=== PATIENT | female | born 1940 | race Caucasian/White ===

== ENCOUNTER 2019-07-24 11:20 | Emergency (ER) | payer MEDICARE, OTHER ==
[2019-07-24 11:27] VITALS: BP 169/90; PULSE 60
--- NOTE | 2019-07-24 11:38 | EDM.PDOC ---
ED HPI GENERAL MEDICAL PROBLEM - General Chief Complaint: Genitourinary Problem Stated Complaint: WEAKNESS MAYBE UTI Time Seen by Provider: 07/24/19 11:30 Source of Information: Reports: Patient, EMS History Limitations: Reports: No Limitations - History of Present Illness INITIAL COMMENTS - FREE TEXT/NARRATIVE: Patient presents by ambulance from home describing generalized weakness, chills , concerned that she might have a UTI. When she went to bed last night, she was feeling somewhat weak and chilled. She was able to move around at home but was less steady than normal. She awoke approximately 0300 hrs. to use the bathroom and states that she made it back to bed but was unable to go to sleep because of concerns over how she felt. Eventually she let her dog out and then made it to her chair, feeling that she had no strength. Onset: Gradual Duration: Hour(s): (12) Location: Reports: Generalized Severity: Moderate Improves with: Reports: None Worsens with: Reports: Movement Associated Symptoms: Reports: Weakness - Related Data Allergies Allergy/AdvReac Type Severity Reaction Status Date / Time allopurinol Allergy Rash Verified 07/24/19 12:27 doxepin AdvReac Dizziness Verified 07/24/19 12:27 levofloxacin [From Levaquin] AdvReac Fainting Verified 07/24/19 12:27 nifedipine [From Procardia] AdvReac Bradycardia Verified 07/24/19 12:27 Home Meds: Home Meds Cholecalciferol (Vitamin D3) [Vitamin D3] 2,000 units PO DAILY 11/24/14 [History ] Aspirin [Halfprin] 81 mg PO DAILY 05/30/17 [History] Clopidogrel Bisulfate [Clopidogrel] 75 mg PO DAILY 05/30/17 [History] Cyanocobalamin (Vitamin B-12) [B-12] 1,000 mcg PO DAILY 05/30/17 [History] Famotidine [Pepcid] 20 mg PO BID 05/30/17 [History] Febuxostat [Uloric] 40 mg PO DAILY 05/30/17 [History] LORazepam [Ativan] 1 mg PO TID PRN 05/30/17 [History] Nebivolol HCl [Bystolic] 5 mg PO BID 05/30/17 [History] atorvaSTATin Calcium [Atorvastatin Calcium] 10 mg PO DAILY 05/30/17 [History] Past Medical History Cardiovascular History: Reports: Hypertension Other Respiratory History: sob or talking on telephone alot- with activity for several years, chronic fatigue Gastrointestinal History: Reports: Gastritis, Other (See Below) Other Gastrointestinal History: diverticulitis Other Genitourinary History: 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) Musculoskeletal History: Reports: Back Pain, Chronic, Gout Other Musculoskeletal History: sometimes back pain from standing or walking Neurological History: Reports: Vertigo Other Neuro History: menieres Psychiatric History: Reports: Anxiety Other Immunologic History: recent prednisone - Past Surgical History GI Surgical History: Reports: Colonoscopy, EGD, Hernia, Abdominal Social & Family History - Living Situation & Occupation Living situation: Reports: , with Spouse Occupation: Retired ED ROS GENERAL - Review of Systems Review Of Systems: See Below Constitutional: Reports: Chills, Weakness. Denies: Fever HEENT: Reports: No Symptoms Respiratory: Reports: No Symptoms Cardiovascular: Reports: No Symptoms : Reports: Incontinence Musculoskeletal: Reports: No Symptoms ED EXAM, RENAL/ - Physical Exam Exam: See Below Text/Narrative:: This is an adult female who seems a little apprehensive but is an extensive historian. Exam Limited By: No Limitations General Appearance: Alert, Anxious Ears: Other (Bilateral cerumen.) Neck: Supple Respiratory/Chest: No Respiratory Distress, Lungs Clear Cardiovascular: Regular Rate, Rhythm GI/Abdominal: Soft, Non-Tender Extremities: Non-Tender, Normal Capillary Refill Neurological: Alert Psychiatric: Anxious EKG INTERPRETATION EKG Date: 07/24/19 Time: 12:43 Rhythm: NSR [place]: Normal P-Wave: Present QRS: Normal ST-T: Normal QT: Normal Comparison: NA - No Prior EKG Course - Vital Signs Last Recorded V/S: Last Vital Signs Temp 36.8 C 07/24/19 11:38 Pulse 60 07/24/19 11:38 Resp 19 07/24/19 11:38 BP 169/90 H 07/24/19 11:38 Pulse Ox 94 L 07/24/19 11:38 - Orders/Labs/Meds Orders: Active Orders 24 hr Category Date Time Status EKG Documentation Completion [RC] ASDIRECTED Care 07/24/19 12:01 Active EKG 12 Lead [EK] Routine Ther 07/24/19 12:00 Ordered Labs: Laboratory Tests 06/07/24/19 07/24/19 Range/Units 12:14 12:14 12:28 WBC 6.6 (4.5-11.0) K/uL RBC 3.73 (3.30-5.50) M/uL Hgb 13.0 (12.0-15.0) g/dL Hct 39.8 (36.0-48.0) % MCV 107 H (80-98) fL MCH 35 H (27-31) pg MCHC 33 (32-36) % Plt Count 233 (150-400) K/uL Neut % (Auto) 75 H (36-66) % Lymph % (Auto) 14 L (24-44) % Walker % (Auto) 10 H (2-6) % Eos % (Auto) 2 (2-4) % Baso % (Auto) 0 (0-1) % Sodium 141 (140-148) mmol/L Potassium 4.2 (3.6-5.2) mmol/L Chloride 101 (100-108) mmol/L Carbon Dioxide 32 (21-32) mmol/L Anion Gap 8.1 (5.0-14.0) mmol/L BUN 14 (7-18) mg/dL Creatinine 0.9 (0.6-1.0) mg/dL Est Cr Clr Drug Dosing 35.21 mL/min Estimated GFR (MDRD) > 60 (>60) Glucose 100 (74-106) mg/dL Calcium 8.4 L (8.5-10.1) mg/dL Total Bilirubin 0.7 D (0.2-1.0) mg/dL AST 23 (15-37) U/L ALT 25 (12-78) U/L Alkaline Phosphatase 49 (46-116) U/L Troponin I < 0.017 (0.000-0.056) ng/mL C-Reactive Protein 0.16 (0.0-0.3) mg/dL Total Protein 6.4 (6.4-8.2) g/dL Albumin 3.3 L (3.4-5.0) g/dL Globulin 3.1 (2.3-3.5) g/dL Albumin/Globulin Ratio 1.1 L (1.2-2.2) Urine Color Yellow (YELLOW) Urine Appearance Cloudy A (CLEAR) Urine pH 6.0 (5.0-8.0) Ur Specific [place] 1.025 (1.008-1.030) Urine Protein 100 H (NEGATIVE) mg/dL Urine Glucose (UA) Negative (NEGATIVE) mg/dL Urine Ketones 40 H (NEGATIVE) mg/dL Urine Occult Blood Trace-lysed H (NEGATIVE) Urine Nitrite Negative (NEGATIVE) Urine Bilirubin Small H (NEGATIVE) Urine Urobilinogen 1.0 (0.2-1.0) EU/dL Ur Leukocyte Esterase Small H (NEGATIVE) Urine RBC 10-20 H (0-5) Urine WBC 40-50 H (0-5) Ur Epithelial Cells Few Amorphous Sediment Not seen Urine Bacteria Moderate Urine Mucus Not seen - Re-Assessments/Exams Free Text/Narrative Re-Assessment/Exam: 07/24/19 13:49 Nursing staff irrigated both ears and canals with removal of cerumen. I returned to review test results with the patient which are good. She is able to talk extensively. I discussed that there is evidence of UTI on her labs today. She states that in the past Cipro has been an antibiotic which a she tolerates, be works for her. She has medication refills which are being mailed to her she has been out of lorazepam for 2 days. I think that may be part of her anxiety difficulties in relation to how she felt this morning. I will have nursing staff ambulate her and see how she does in the hallway. The patient will be sent with a 7 day prescription for Cipro 500 mg and 5 days of lorazepam to bridge her until her mail-order supply arrives. 07/24/19 13:50 Departure - Departure Time of Disposition: 14:11 Disposition: Home, Self-Care 01 Condition: Good Clinical Impression: UTI, Urinary tract infectious disease, Anxiety - Discharge Information *PRESCRIPTION DRUG MONITORING PROGRAM REVIEWED*: Not Applicable *COPY OF PRESCRIPTION DRUG MONITORING REPORT IN PATIENT TE: Not Applicable Referrals: PCP,None [Primary Care Provider] - Forms: ED Department Discharge Additional Instructions: Start antibiotic today and complete all doses. Use lorazepam at bedtime as per usual plan. Use walker for safety as discussed. Return to ER if feeling worse in anyway. Sepsis Event Note (ED) - Focused Exam Vital Signs: Vital Signs Temp Pulse Resp BP Pulse Ox 07/24/19 11:38 36.8 C 60 19 169/90 H 94 L 07/24/19 11:26 36.8 C 60 19 169/90 H 94 L - My Orders Last 24 Hours: My Active Orders 07/24/19 12:00 EKG 12 Lead [EK] Routine 07/24/19 12:01 EKG Documentation Completion [RC] ASDIRECTED - Assessment/Plan Last 24 Hours: My Active Orders 07/24/19 12:00 EKG 12 Lead [EK] Routine 07/24/19 12:01 EKG Documentation Completion [RC] ASDIRECTED
== END 2019-07-24 14:34 | disposition home or self-care (01) ==
LOC: JP.ED 11:20
DX: N39.0 Urinary tract infection, site not specified (principal); F41.9 Anxiety disorder, unspecified; I10 Essential (primary) hypertension; M10.9 Gout, unspecified; Z79.82 Long term (current) use of aspirin; Z79.02 Long term (current) use of antithrombotics/antiplatelets; Z79.899 Other long term (current) drug therapy; Z88.8 Allergy status to other drugs, medicaments and biological substances; Z88.1 Allergy status to other antibiotic agents
CPT/HCPCS: 36415; 69209; 80053; 81001; 84484; 85025; 86140; 93005; 93010; 99283; 99285-25

== ENCOUNTER 2022-03-22 15:37 | Emergency (ER) | payer MEDICARE, OTHER ==
[2022-03-22] MEDS ORDERED: cefTRIAXone 1 GM in Sodium Chloride 0.9% 50 ML IV ONE (17:21)
[2022-03-22] MEDS ORDERED: Pantoprazole 40 MG Vial IVPUSH ONE (17:23)
[2022-03-22] MEDS ORDERED: HYDROmorphone 0.5 MG/0.5 ML Syringe IVPUSH ONE (17:23)
[2022-03-22 17:44] VITALS: BP 172/94; PULSE 72
== END 2022-03-22 18:40 | disposition home or self-care (01) ==
LOC: JP.ED 15:37
DX: N30.90 Cystitis, unspecified without hematuria (principal); I10 Essential (primary) hypertension; M10.9 Gout, unspecified; Z88.1 Allergy status to other antibiotic agents; Z88.8 Allergy status to other drugs, medicaments and biological substances; Z79.82 Long term (current) use of aspirin; Z79.02 Long term (current) use of antithrombotics/antiplatelets; Z79.899 Other long term (current) drug therapy
CPT/HCPCS: 81001; 87086; 96365; 99283; 99284; J0696

== ENCOUNTER 2022-03-27 17:16 | Emergency (ER) | payer MEDICARE, OTHER ==
[2022-03-27 17:45] VITALS: BP 185/97; PULSE 83
== END 2022-03-27 18:54 | disposition home or self-care (01) ==
LOC: JP.ED 17:16
DX: U07.1 COVID-19 (principal); I10 Essential (primary) hypertension; Z88.1 Allergy status to other antibiotic agents; Z88.8 Allergy status to other drugs, medicaments and biological substances; Z79.82 Long term (current) use of aspirin; Z79.02 Long term (current) use of antithrombotics/antiplatelets; Z79.899 Other long term (current) drug therapy
CPT/HCPCS: 99284

== ENCOUNTER 2022-04-13 09:20 | Emergency (ER) | payer MEDICARE, OTHER ==
[2022-04-13] MEDS ORDERED: Ketorolac 30 MG/ML SDV IM ONE ×2 (09:48→09:49)
[2022-04-13 11:31] VITALS: BP 147/73; PULSE 78
== END 2022-04-13 12:43 | disposition home or self-care (01) ==
LOC: JP.ED 09:20
DX: N39.0 Urinary tract infection, site not specified (principal); I10 Essential (primary) hypertension; J44.9 Chronic obstructive pulmonary disease, unspecified; Z88.1 Allergy status to other antibiotic agents; Z88.8 Allergy status to other drugs, medicaments and biological substances; Z79.82 Long term (current) use of aspirin; Z79.899 Other long term (current) drug therapy
CPT/HCPCS: 36415; 74018; 74176; 80048; 81001; 83605; 84484; 85025; 87086; 87088; 87186; 96372; 99284; J1885

== ENCOUNTER 2022-04-22 16:40 | Inpatient (IN) | payer MEDICARE, OTHER ==
[2022-04-22 17:55] LABS: ESTIMATED GFR 73 mL/min (>60)
[2022-04-22 18:29] LABS: CORONAVIRUS COVID-19 NAA NEGATIVE (NEGATIVE)
[2022-04-22] MEDS ORDERED: Sodium Chloride 0.9% 75 ML IV SCH (18:30)
[2022-04-22] MEDS ORDERED: Iopamidol 612 MG/ML 100 ML Bottle IV SCH (18:30)
[2022-04-22] MEDS ORDERED: Ondansetron 4 MG/2 ML SDV IV PRN (20:05)
[2022-04-22] MEDS ORDERED: Sodium Chloride 0.9% 1,000 ML IV SCH (20:05)
[2022-04-22] MEDS ORDERED: Sodium Chloride 0.9% 10 ML Syringe FLUSH PRN (20:05)
[2022-04-22] MEDS ORDERED: Enoxaparin 40 MG/0.4 ML Syringe SUBCUT SCH (20:05)
[2022-04-22] MEDS ORDERED: Sodium Phosphate,Monobasic/Sodium Phosphate,Dibasic Enema 133 ML Bottle RECTAL PRN (20:05)
[2022-04-22] MEDS: Acetaminophen 325 MG Tab PO PRN (20:51)
[2022-04-22] MEDS: oxyCODONE 5 MG Tab PO PRN (20:51)
[2022-04-22] MEDS: Piperacillin/Tazobactam 3.375 GM in Sodium Chloride 0.9% 50 ML IV SCH (20:53)
[2022-04-22] MEDS: Bisacodyl 10 MG Supp RECTAL ONE (21:09)
[2022-04-22] MEDS: Polyethylene Glycol 3350 Powder 17 GM Packet PO ONE (22:32)
[2022-04-23] MEDS: Acetaminophen 325 MG Tab PO PRN (00:34)
[2022-04-23] MEDS: oxyCODONE 5 MG Tab PO PRN ×3 (00:35→09:52)
[2022-04-23] MEDS: Piperacillin/Tazobactam 3.375 GM in Sodium Chloride 0.9% 50 ML IV SCH (02:16)
[2022-04-23] MEDS ORDERED: Bisacodyl 10 MG Supp ONE (05:44)
[2022-04-23] MEDS: Bisacodyl 10 MG Supp RECTAL ONE (05:46)
[2022-04-23] MEDS: Polyethylene Glycol 3350 Powder 17 GM Packet PO ONE (05:51)
[2022-04-23] MEDS: Piperacillin/Tazobactam/Dext 3.375 GM in Premix Bag 1 BAG IV SCH ×3 (09:16→20:30)
[2022-04-23] MEDS: Clopidogrel 75 MG Tab PO SCH (09:54)
[2022-04-23] MEDS: Magnesium Oxide 400 MG Tab PO SCH ×2 (09:54→20:36)
[2022-04-23] MEDS: Aspirin 81 MG Tab.EC PO SCH (09:54)
[2022-04-23] MEDS: Magnesium Sulfate/Water 2 GM in Premix Bag 1 BAG IV SCH ×3 (11:13→22:07)
[2022-04-23] MEDS: Enoxaparin 40 MG/0.4 ML Syringe SUBCUT SCH (20:37)
[2022-04-23] MEDS: LORazepam 1 MG Tab PO PRN (22:10)
[2022-04-24] MEDS: Piperacillin/Tazobactam/Dext 3.375 GM in Premix Bag 1 BAG IV SCH ×4 (02:30→21:30)
[2022-04-24] MEDS: Magnesium Sulfate/Water 2 GM in Premix Bag 1 BAG IV SCH (04:00)
[2022-04-24] MEDS: Magnesium Oxide 400 MG Tab PO SCH ×2 (08:24→21:33)
[2022-04-24] MEDS: Aspirin 81 MG Tab.EC PO SCH (08:24)
[2022-04-24] MEDS: Clopidogrel 75 MG Tab PO SCH (08:25)
[2022-04-24] MEDS ORDERED: Gadoteridol 279.3 MG/ML 15 ML SDV IV SCH (15:00)
[2022-04-24] MEDS: Acetaminophen 325 MG Tab PO PRN ×2 (19:19→23:06)
[2022-04-24] MEDS: Enoxaparin 40 MG/0.4 ML Syringe SUBCUT SCH (21:32)
[2022-04-24] MEDS: LORazepam 1 MG Tab PO PRN (21:35)
[2022-04-25] MEDS: Piperacillin/Tazobactam/Dext 3.375 GM in Premix Bag 1 BAG IV SCH ×2 (02:27→08:14)
[2022-04-25] MEDS: Aspirin 81 MG Tab.EC PO SCH (08:25)
[2022-04-25] MEDS: Clopidogrel 75 MG Tab PO SCH (08:25)
[2022-04-25] MEDS: Magnesium Oxide 400 MG Tab PO SCH ×2 (08:26→20:37)
[2022-04-25] MEDS: Piperacillin/Tazobactam/Dext 2.25 GM in Premix Bag 1 BAG IV SCH ×2 (14:51→19:44)
[2022-04-25] MEDS ORDERED: Lidocaine 5% 700 MG Patch TRDERM SCH ×2 (18:00→18:30)
[2022-04-25] MEDS: Acetaminophen 325 MG Tab PO PRN (20:27)
[2022-04-25] MEDS: LORazepam 1 MG Tab PO PRN (20:27)
[2022-04-25] MEDS: Enoxaparin 40 MG/0.4 ML Syringe SUBCUT SCH (20:37)
[2022-04-25] MEDS: Acetaminophen 500 MG Tab PO SCH (20:39)
[2022-04-25] MEDS ORDERED: Celecoxib 200 MG Cap PO ONE (21:28)
[2022-04-25] MEDS: Celecoxib 100 MG Cap PO SCH (21:52)
[2022-04-26] MEDS: Acetaminophen 325 MG Tab PO PRN (00:05)
[2022-04-26] MEDS: Piperacillin/Tazobactam/Dext 2.25 GM in Premix Bag 1 BAG IV SCH ×2 (02:18→07:54)
[2022-04-26 07:45] VITALS: BP 149/72; PULSE 57
[2022-04-26] MEDS: Acetaminophen 500 MG Tab PO SCH (09:31)
[2022-04-26] MEDS: Magnesium Oxide 400 MG Tab PO SCH (09:32)
[2022-04-26] MEDS: Celecoxib 100 MG Cap PO SCH (09:32)
[2022-04-26] MEDS: LORazepam 1 MG Tab PO PRN (09:36)
[2022-04-26 11:48] LABS: CORONAVIRUS COVID-19 NAA NEGATIVE (NEGATIVE)
== END 2022-04-26 13:40 | DRG 542 ==
LOC: JP.ED 16:40 → JP.MS 18:11
PROVIDERS: ADMIT Hospitalist; ATTEND Hospitalist
DX: M48.56XA Collapsed vertebra, not elsewhere classified, lumbar region, initial encounter for fracture (principal); U07.1 COVID-19; N39.0 Urinary tract infection, site not specified; M48.062 Spinal stenosis, lumbar region with neurogenic claudication; M54.16 Radiculopathy, lumbar region; N18.31 Chronic kidney disease, stage 3a; H91.90 Unspecified hearing loss, unspecified ear; K59.00 Constipation, unspecified; Z79.899 Other long term (current) drug therapy; I12.9 Hypertensive chronic kidney disease with stage 1 through stage 4 chronic kidney disease, or unspecified chronic kidney disease; J44.9 Chronic obstructive pulmonary disease, unspecified; G89.29 Other chronic pain; M54.9 Dorsalgia, unspecified; M10.9 Gout, unspecified; F41.9 Anxiety disorder, unspecified; Z88.2 Allergy status to sulfonamides; Z88.8 Allergy status to other drugs, medicaments and biological substances; Z88.1 Allergy status to other antibiotic agents; Z79.82 Long term (current) use of aspirin; Z98.890 Other specified postprocedural states; Z90.49 Acquired absence of other specified parts of digestive tract; Z90.5 Acquired absence of kidney; Z87.891 Personal history of nicotine dependence
CPT/HCPCS: 0241U; 36415; 72158; 72158-26; 74177; 80048; 80053; 81001; 83605; 83735; 84145; 85025; 86140; 87086; 97110-GP; 97162-GP; 97530-GP; 97535-GP; 99222; 99232; 99238; 99284; 99285-25; A9270-GY; A9579; J1650; J2543; J3475; J3490; J7030; Q9967; U0002

== ENCOUNTER 2022-06-02 16:00 | Inpatient (IN) | payer MEDICARE, OTHER ==
[2022-06-02] MEDS ORDERED: Sodium Chloride 0.9% 1,000 ML IV SCH (16:30)
[2022-06-02 17:09] LABS: ESTIMATED GFR 56 mL/min (>60)
[2022-06-02] MEDS: Pantoprazole 40 MG Vial IVPUSH SCH (17:09)
[2022-06-02 18:07] LABS: CORONAVIRUS COVID-19 NAA NEGATIVE (NEGATIVE)
[2022-06-02] MEDS ORDERED: Ondansetron 4 MG/2 ML SDV IV PRN (19:14)
[2022-06-02] MEDS ORDERED: Ondansetron 4 MG Tab.DIS PO PRN (19:14)
[2022-06-02] MEDS: HYDROmorphone 1 MG/ML Syringe IVPUSH PRN ×2 (19:42→22:11)
[2022-06-02] MEDS: Acetaminophen 500 MG Tab PO SCH (20:43)
[2022-06-02] MEDS: Escitalopram 10 MG Tab PO SCH (20:43)
[2022-06-02] MEDS: LORazepam 1 MG Tab PO SCH (20:43)
[2022-06-02] MEDS: Lidocaine 5% 700 MG Patch TRDERM SCH (20:44)
[2022-06-02] MEDS ORDERED: NEBIVOLOL HCL 5 MG PO SCH (21:00)
[2022-06-03] MEDS: HYDROmorphone 1 MG/ML Syringe IVPUSH PRN ×2 (03:01→07:11)
[2022-06-03] MEDS: Sodium Chloride 0.9% 1,000 ML IV SCH ×3 (04:39→23:55)
[2022-06-03] MEDS: Pantoprazole 40 MG Vial IVPUSH SCH (04:39)
[2022-06-03] MEDS: Pantoprazole 40 MG Vial IV SCH ×2 (04:41→16:25)
[2022-06-03] MEDS ORDERED: Propofol 200 MG/20 ML SDV ONE (07:32)
[2022-06-03] MEDS ORDERED: fentaNYL 50 MCG/ML SDV ONE (07:32)
[2022-06-03] MEDS ORDERED: Bisacodyl 5 MG Tab PO ONE ×3 (09:00→20:00)
[2022-06-03] MEDS ORDERED: CHECK FENTANYL PATCH DAILY TOP SCH (09:00)
[2022-06-03] MEDS: Acetaminophen 500 MG Tab PO SCH ×3 (11:05→20:29)
[2022-06-03] MEDS: CHECK FENTANYL PATCH TOP SCH ×2 (11:06→20:33)
[2022-06-03] MEDS: Cyanocobalamin (Vitamin B12) 1,000 MCG Tab PO SCH (11:07)
[2022-06-03] MEDS: LORazepam 1 MG Tab PO SCH ×2 (11:10→21:30)
[2022-06-03] MEDS ORDERED: Polyethylene Glycol 3350 Powder 238 GM Bot PO ONE (16:00)
[2022-06-03] MEDS: Lidocaine 5% 700 MG Patch TRDERM SCH (20:29)
[2022-06-03] MEDS: Escitalopram 10 MG Tab PO SCH (20:32)
[2022-06-04] MEDS: HYDROmorphone 1 MG/ML Syringe IVPUSH PRN ×2 (06:03→08:53)
[2022-06-04] MEDS: Pantoprazole 40 MG Vial IV SCH ×2 (06:06→16:31)
[2022-06-04] MEDS ORDERED: Propofol 200 MG/20 ML SDV ONE (07:22)
[2022-06-04] MEDS ORDERED: fentaNYL 25 MCG/HR Transdermal Patch TRDERM SCH (09:00)
[2022-06-04] MEDS: LORazepam 1 MG Tab PO SCH ×2 (10:35→21:06)
[2022-06-04] MEDS: Acetaminophen 500 MG Tab PO SCH ×3 (10:36→20:09)
[2022-06-04] MEDS: CHECK FENTANYL PATCH TOP SCH ×2 (10:38→21:09)
[2022-06-04] MEDS: Cyanocobalamin (Vitamin B12) 1,000 MCG Tab PO SCH (10:38)
[2022-06-04] MEDS ORDERED: Bisacodyl 5 MG Tab PO ONE ×2 (11:00→20:00)
[2022-06-04] MEDS ORDERED: Polyethylene Glycol 3350 Powder 238 GM Bot PO ONE (16:00)
[2022-06-04] MEDS: Sodium Chloride 0.9% 1,000 ML IV SCH (18:35)
[2022-06-04] MEDS: Escitalopram 10 MG Tab PO SCH (20:08)
[2022-06-04] MEDS: Lidocaine 5% 700 MG Patch TRDERM SCH (20:09)
[2022-06-05] MEDS: HYDROmorphone 1 MG/ML Syringe IVPUSH PRN ×3 (00:31→13:30)
[2022-06-05] MEDS: Pantoprazole 40 MG Vial IV SCH ×2 (05:26→16:01)
[2022-06-05] MEDS ORDERED: Propofol 200 MG/20 ML SDV ONE (06:47)
[2022-06-05] MEDS: CHECK FENTANYL PATCH TOP SCH ×2 (09:36→20:27)
[2022-06-05] MEDS: LORazepam 1 MG Tab PO SCH ×2 (09:36→20:26)
[2022-06-05] MEDS: Acetaminophen 500 MG Tab PO SCH ×3 (09:37→20:27)
[2022-06-05] MEDS: Cyanocobalamin (Vitamin B12) 1,000 MCG Tab PO SCH (09:37)
[2022-06-05] MEDS: Lidocaine 5% 700 MG Patch TRDERM SCH (20:27)
[2022-06-05] MEDS: Escitalopram 10 MG Tab PO SCH (20:27)
[2022-06-06] MEDS: Pantoprazole 40 MG Vial IV SCH (04:20)
[2022-06-06] MEDS: Acetaminophen 500 MG Tab PO SCH (10:28)
[2022-06-06] MEDS: Cyanocobalamin (Vitamin B12) 1,000 MCG Tab PO SCH (10:30)
[2022-06-06] MEDS: LORazepam 1 MG Tab PO SCH (10:31)
[2022-06-06] MEDS: CHECK FENTANYL PATCH TOP SCH (10:34)
[2022-06-06 14:12] VITALS: BP 166/73; PULSE 66
[2022-06-07] MEDS ORDERED: Pantoprazole 40 MG Tab.CR PO SCH (07:30)
== END 2022-06-06 14:40 | DRG 378 ==
LOC: JP.ED 16:00 → JP.ICU 17:53
PROVIDERS: ADMIT Internal Medicine; ATTEND Internal Medicine
PROC: 0DB68ZX Excision of Stomach, Via Natural or Artificial Opening Endoscopic, Diagnostic (ICD-10-PCS; 2022-06-03)
PROC: 0DJD8ZZ Inspection of Lower Intestinal Tract, Via Natural or Artificial Opening Endoscopic (ICD-10-PCS; principal; 2022-06-04)
PROC: 0DBH8ZX Excision of Cecum, Via Natural or Artificial Opening Endoscopic, Diagnostic (ICD-10-PCS; 2022-06-05)
PROC: 0DBL8ZX Excision of Transverse Colon, Via Natural or Artificial Opening Endoscopic, Diagnostic (ICD-10-PCS; 2022-06-05)
DX: K29.71 Gastritis, unspecified, with bleeding (principal); D62 Acute posthemorrhagic anemia; M48.062 Spinal stenosis, lumbar region with neurogenic claudication; N18.31 Chronic kidney disease, stage 3a; I12.9 Hypertensive chronic kidney disease with stage 1 through stage 4 chronic kidney disease, or unspecified chronic kidney disease; J44.9 Chronic obstructive pulmonary disease, unspecified; H91.90 Unspecified hearing loss, unspecified ear; M54.50 Low back pain, unspecified; G89.29 Other chronic pain; K63.5 Polyp of colon; M10.9 Gout, unspecified; F41.9 Anxiety disorder, unspecified; Z90.49 Acquired absence of other specified parts of digestive tract; Z98.890 Other specified postprocedural states; Z90.5 Acquired absence of kidney; Z88.2 Allergy status to sulfonamides; Z88.8 Allergy status to other drugs, medicaments and biological substances; Z88.1 Allergy status to other antibiotic agents; Z87.891 Personal history of nicotine dependence
CPT/HCPCS: 0241U; 36415; 36430; 72148; 72148-26; 80048; 80053; 83605; 85018; 85025; 85027; 85610; 86850; 86900; 86901; 86920; 86922; 88305; 96361; 96374; 99222; 99232; 99238; 99285; 99285-25; A9270-GY; C9113; J1170; J2704; J3010; J7030; P9016; Q0162; U0002